=== PATIENT | female | born 1945 | race Caucasian/White ===

== ENCOUNTER 2022-09-10 18:48 | Emergency (ER) | payer MEDICARE, OTHER ==
[~2022-09-10] VITALS: Ht 170.2 cm; Wt 72.6 kg
[2022-09-10 19:03] VITALS: BP 143/73
--- NOTE | 2022-09-10 19:39 | NUR ---
RECEIVED 78 YRS FEMALE FROM HOME, S/P FALL. C/O PAIN ON RT UPPER ARM.
--- NOTE | 2022-09-10 19:40 | NUR ---
SEEN BY DR. BALDERRAMA.
[2022-09-10] MEDS ORDERED: HYDROCODONE/APAP 5/325MG TABLET ONE (19:46)
--- NOTE | 2022-09-10 19:51 | NUR ---
NORCO 5/325 MG TAB GIVEN ORDERED AND PT TOLERATED WELL.
[2022-09-10] MEDS ORDERED: HYDROCODONE/APAP 5/325MG TABLET PO ONE (20:00)
[2022-09-10] MEDS ORDERED: IBUP-1953 PO ×2 (21:24→21:30)
[2022-09-10] MEDS ORDERED: HYDR-3972 PO ×2 (21:24→21:30)
--- NOTE | 2022-09-10 21:54 | NUR ---
Patient discharged to home in stable condition. Written and verbal after care instructions given. Patient verbalizes understanding of instruction. FAMILY MEMBERS AT BEDSIDE
== END 2022-09-10 22:17 | disposition home or self-care (01) ==
LOC: ER 18:52
DX: S42.201A Unspecified fracture of upper end of right humerus, initial encounter for closed fracture (principal); Z79.899 Other long term (current) drug therapy; W01.0XXA Fall on same level from slipping, tripping and stumbling without subsequent striking against object, initial encounter; Y93.89 Activity, other specified; Y92.89 Other specified places as the place of occurrence of the external cause; Y99.8 Other external cause status
CPT/HCPCS: 73030-TC; 73060-TC

== ENCOUNTER 2024-06-30 17:35 | Emergency (ER) | payer MEDICARE, OTHER ==
[~2024-06-30] VITALS: Ht 165.1 cm; Wt 68.0 kg
[~2024-06-30 17:35] MED LIST: HYDR-3972 PO; IBUP-1953 PO
[2024-06-30] MEDS: TDAP [DIPH/PERTUSSIS/TET] 0.5 ML VIAL IM ONE (19:00)
[2024-06-30] MEDS ORDERED: LIDOCAINE 1%-EPI 1:100,000 20 ML VIAL TP ONE (19:00)
[2024-06-30] MEDS ORDERED: TDAP [DIPH/PERTUSSIS/TET] 0.5 ML VIAL IM ONE (19:09)
[2024-06-30] MEDS ORDERED: LIDOCAINE 1%-EPI 1:100,000 20 ML VIAL ONE (19:09)
[2024-06-30] MEDS ORDERED: ACETAMINOPHEN ES 500 MG TABLET ONE (19:09)
[2024-06-30] MEDS: ACETAMINOPHEN ES 500 MG TABLET PO ONE (19:23)
[2024-06-30] MEDS ORDERED: ACET-2605 PO (20:44)
[2024-06-30] MEDS ORDERED: IBUP-1490 PO (20:44)
[2024-06-30 21:15] VITALS: BP 132/75; TEMP 98; O2SAT 97
== END 2024-06-30 21:16 | disposition home or self-care (01) ==
LOC: ER 17:39
DX: S82.001A Unspecified fracture of right patella, initial encounter for closed fracture (principal); S01.81XA Laceration without foreign body of other part of head, initial encounter; R41.82 Altered mental status, unspecified; R51.9 Headache, unspecified; Z87.19 Personal history of other diseases of the digestive system; Z85.3 Personal history of malignant neoplasm of breast; W01.0XXA Fall on same level from slipping, tripping and stumbling without subsequent striking against object, initial encounter; Y93.89 Activity, other specified; Y92.89 Other specified places as the place of occurrence of the external cause; Y99.8 Other external cause status
CPT/HCPCS: 12011; 29505; 70450; 70486; 73564; 90471; 90715; 99285; J3490